=== PATIENT | female | born 1955 ===

== ENCOUNTER 2018-07-21 12:36 | Emergency (ER) | payer MEDICAID, OTHER ==
[2018-07-21] MEDS ORDERED: Albuterol-Ipratrop 3 mg / 0.5 (3 ml) UD ONE ×2 (12:43→13:32)
[2018-07-21 12:46] VITALS: TEMP 97.6
[2018-07-21] MEDS ORDERED: Albuterol-Ipratrop 3 mg / 0.5 (3 ml) UD INH STA (12:48)
[2018-07-21] MEDS ORDERED: Dexamethasone 4 mg/1 ml IVP STA (13:14)
[2018-07-21] MEDS ORDERED: Albuterol 0.083% Inhal Sol (2.5 mg/3 mL) UD ONE (13:14)
[2018-07-21] MEDS: Albuterol-Ipratrop 3 mg / 0.5 (3 ml) UD IH SCH (13:33)
[2018-07-21 13:46] LABS: BASO # 0.1 K/uL (0.0-0.2); BASO % 1.1 % (0.0-2.0); EOS # 0.1 K/uL (0.0-0.7); EOS % 1.5 % (0.0-4.0); HEMOGLOBIN 12.6 g/dL (11.0-16.0); LYMPH % 62.5 % (20.0-40.0); MEAN CELL VOLUME 89.2 fL (81.0-99.0); MEAN CORPUSCULAR HGB CONC 32.5 g/dL (33.0-37.0); MONO # 0.5 K/uL (0.0-0.8); MONO % 5.2 % (0.0-10.0); NEUT # 2.8 K/uL (1.8-7.0); NEUT % 29.7 % (50.0-75.0); NRBC % 0.2 % (0.0-2.0); RBC 4.33 Mil/uL (3.80-5.20); RED CELL DISTRIBUTION WIDTH 13.1 % (11.5-14.5); WHITE BLOOD COUNT 9.6 K/uL (4.8-10.8)
[2018-07-21 13:51] LABS: BLOOD UREA NITROGEN 12 mg/dL (7-17); GFR NON-AFRICAN AMERICAN > 60
[2018-07-21 13:52] LABS: ALB/GLOB RATIO 1.6 (1.0-2.1); ALBUMIN 4.3 g/dL (3.5-5.0); ALT/SGPT 23 U/L (9-52); AST/SGOT 22 U/L (14-36); CALCIUM 9.4 mg/dl (8.6-10.4)
[2018-07-21 13:55] LABS: CK-MB 0.65 ng/mL (0.0-3.38)
--- NOTE | 2018-07-21 13:57 | C.PDOC ---
History Of Present Illness 63 y/o female, with history of asthma, presents to the ED complaining of chest pain and SOB. Patient states she was recently diagnosed with the flu. She reports she is still wheezing despite using her inhaler. Patient denies any fev er, chills, cough, palpitations, vomiting, or other complaints. Time Seen by Provider: 07/21/18 13:02 Chief Complaint (Nursing): Shortness Of Breath History Per: Patient History/Exam Limitations: no limitations Onset/Duration Of Symptoms: Days Current Symptoms Are (Timing): Still Present Severity: Mild Past Medical History Reviewed: Historical Data, Nursing Documentation, Vital Signs Vital Signs: Last Vital Signs Temp 97.6 F 07/21/18 12:40 Pulse 95 H 07/21/18 12:40 Resp 26 H 07/21/18 13:18 BP Pulse Ox 92 L 07/21/18 12:40 - Medical History PMH: Asthma, Back Problems, Gastritis, GERD Surgical History: Appendectomy (19 ys old) Family History: States: No Known Family Hx - Social History Hx Tobacco Use: No Hx Alcohol Use: No Hx Substance Use: No - Immunization History Hx Tetanus Toxoid Vaccination: No Hx Influenza Vaccination: No Hx Pneumococcal Vaccination: No Review Of Systems Except As Marked, All Systems Reviewed And Found Negative. Constitutional: Negative for: Fever, Chills, Sweats Cardiovascular: Positive for: Chest Pain. Negative for: Palpitations Respiratory: Positive for: Shortness of Breath, Wheezing. Negative for: Cough Gastrointestinal: Negative for: Vomiting Physical Exam - Physical Exam Appears: Non-toxic, No Acute Distress, Other (Anxious) Skin: Warm, Dry Head: Atraumatic, Normacephalic Eye(s): bilateral: Normal Inspection Oral Mucosa: Moist Neck: Supple Cardiovascular: Rhythm Regular, No Murmur Respiratory: No Rales, No Rhonchi, Wheezing (expiratory wheezing in both lung de dios) Extremity: Normal ROM Extremity: Bilateral: Atraumatic, Normal Color And Temperature, Normal ROM Neurological/Psych: Oriented x3, Normal Speech, Normal Cognition ED Course And Treatment - Laboratory Results Result Diagrams: 07/21/18 13:25 07/21/18 13:25 Lab Results: Total Bilirubin 1.0 mg/dL (0.2-1.3) 07/21/18 13:25 AST 22 U/L (14-36) 07/21/18 13:25 ALT 23 U/L (9-52) 07/21/18 13:25 Alkaline Phosphatase 84 U/L (38-126) 07/21/18 13:25 Total Protein 7.0 g/dL (6.3-8.3) 07/21/18 13:25 Albumin 4.3 g/dL (3.5-5.0) 07/21/18 13:25 Globulin 2.7 gm/dL (2.2-3.9) 07/21/18 13:25 Albumin/Globulin Ratio 1.6 (1.0-2.1) 07/21/18 13:25 Lab Interpretation: Normal ECG: Interpreted By Me ECG Rhythm: Sinus Rhythm, Nonspecific Changes ECG Interpretation: No Acute Changes Rate From EC O2 Sat by Pulse Oximetry: 92 (RA) Pulse Ox Interpretation: Abnormal - Radiology CXR: Interpreted by Me CXR Interpretation: Yes: No Acute Disease Progress Note: treated with duoneb x 3 andecadron. On re-evaluation feeling better, lungs clear in no distress Reassessment Condition: Improved Medical Decision Making Medical Decision Making: Plan: --Labs --Chest XR --UA --Duoneb --Decadron 10 mg IVP Disposition Counseled Patient/Family Regarding: Studies Performed, Diagnosis, Need For Followup, Rx Given - Disposition Referrals: [facility] [Outside] [email or web address] [Outside] Disposition: HOME/ ROUTINE Disposition Time: 16:00 Condition: IMPROVED Additional Instructions: Follow up with your PMD for further evaluation Return to ED if any increase symptoms Prescriptions: predniSONE [predniSONE Tab] 40 mg PO DAILY #8 tab Instructions: Asthma in Adults Forms: [facility] (Barbadian) - POA Present On Arrival: None - Clinical Impression Clinical Impression: Asthma - 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 - Scribe Statement The provider has reviewed the documentation as recorded by the Scribe Faith Mcelroy All medical record entries made by the Scribe were at my direction and personally dictated by me. I have reviewed the chart and agree that the record accurately reflects my personal performance of the history, physical exam, medical decision making, and the department course for this patient. I have also personally directed, reviewed, and agree with the discharge instructions and disposition.
--- NOTE | 2018-07-21 14:41 | RAD ---
HISTORY: SOB COMPARISON: Chest x-ray performed 11/16/13 TECHNIQUE: Chest PA and lateral FINDINGS: LUNGS: No focal consolidation. Please note that chest x-ray has limited sensitivity for the detection of pulmonary masses. PLEURA: No significant pleural effusion identified. No definite pneumothorax . CARDIOVASCULAR: Heart size appears within normal limits. Atherosclerotic calcifications of the aortic knob. OSSEOUS STRUCTURES: Degenerative changes. VISUALIZED UPPER ABDOMEN: Unremarkable. OTHER FINDINGS: None. IMPRESSION: No focal consolidation.
[2018-07-21 15:22] VITALS: BP 115/51; PULSE 72; RESP 16
[2018-07-21 15:27] VITALS: O2SAT 92
== END 2018-07-21 15:58 | disposition home or self-care (01) ==
LOC: C.ER 12:36
DX: J45.909 Unspecified asthma, uncomplicated (principal)
CPT/HCPCS: 36415; 71046; 80053; 82553; 84484; 85025; 96374; 99284; J1100

== ENCOUNTER 2018-09-12 09:28 | Emergency (ER) | payer MEDICARE, OTHER ==
[2018-09-12 09:35] VITALS: RESP 18; O2SAT 98
[2018-09-12] MEDS ORDERED: Albuterol-Ipratrop 3 mg / 0.5 (3 ml) UD INH STA (10:55)
--- NOTE | 2018-09-12 11:47 | C.PDOC ---
History Of Present Illness 63 y.o. female with hx of arthritis presents with worsening bilateral knee pain and calf for 2 weeks. Pt reports the pain is worse on the left knee and calf. Admits to taking meloxicam without pain relief so she stopped one week ago. . She notes the pt is worse with swelling bilaterally to lower extremities. Denies CP, SOB, trauma, prolonged immobilization, numbness, tingling, or any other associated symptoms. Time Seen by Provider: 09/12/18 10:41 Chief Complaint (Nursing): Lower Extremity Problem/Injury History Per: Patient History/Exam Limitations: no limitations Onset/Duration Of Symptoms: Days Current Symptoms Are (Timing): Still Present Recent travel outside of the [place]: No Past Medical History Reviewed: Historical Data, Nursing Documentation, Vital Signs Vital Signs: Last Vital Signs Temp 98.5 F 09/12/18 09:32 Pulse 84 09/12/18 09:32 Resp 18 09/12/18 09:32 BP 117/76 09/12/18 09:32 Pulse Ox 98 09/12/18 09:32 Primary Care Provider: Nirav Jara - Medical History PMH: Asthma, Back Problems, Gastritis, GERD, Hypercholesterolemia Surgical History: Appendectomy (19 ys old) Family History: States: Unknown Family Hx - Social History Hx Tobacco Use: No Hx Alcohol Use: No Hx Substance Use: No - Immunization History Hx Tetanus Toxoid Vaccination: No Hx Influenza Vaccination: No Hx Pneumococcal Vaccination: No Review Of Systems Cardiovascular: Negative for: Chest Pain Respiratory: Negative for: Shortness of Breath Musculoskeletal: Positive for: Leg Pain (bilateral pain and swelling to lower extremities, worse to the right knee and calf.). Negative for: Other ((-) trauma. (-) prolonged immobilization.) Neurological: Negative for: Weakness, Numbness, Incoordination Physical Exam - Physical Exam Appears: Non-toxic, No Acute Distress Skin: Warm, Dry Head: Atraumatic, Normacephalic Eye(s): bilateral: Normal Inspection Oral Mucosa: Moist Neck: Normal ROM, Supple Cardiovascular: Rhythm Regular Respiratory: No Decreased Breath Sounds, No Accessory Muscle Use, No Wheezing Extremity: Normal ROM (painful ROM. ), Tenderness (bilateral diffuse tenderness to the lower extremities, more specifically tenderness to the posterior calves), No Deformity, No Swelling Pulses: Left Dorsalis Pedis: Normal, Right Dorsalis Pedis: Normal Neurological/Psych: Oriented x3, Normal Speech, Normal Cognition, Normal Motor, Normal Sensation, Normal Reflexes ED Course And Treatment O2 Sat by Pulse Oximetry: 98 (RA) Pulse Ox Interpretation: Normal Medical Decision Making Medical Decision Making: Initial plan: -Xray bilateral knees HCG Urine Tylenol pt with bilateral calf and knee pain and swelling x 2 weeks worsening. concern for dvt given pt's pain. pt has neg bilateral doppler. mildly elevated cpk. feeling better after toradol. d/c home with pmd f/u Disposition Counseled Patient/Family Regarding: Studies Performed, Diagnosis, Need For Followup - Disposition Referrals: Nirav Jara MD [Staff Provider] - Disposition: HOME/ ROUTINE Disposition Time: 13:49 Condition: IMPROVED Additional Instructions: Follow up with Dr Jara in 1-2 days., Drink more fluids; 6-8 cups of water per day. Take Tylnol and ibuprofen as prescribed. . Elevate legs when possible. 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 - Scribe Statement The provider has reviewed the documentation as recorded by the Scribe (Emelia Escalante) All medical record entries made by the Scribe were at my direction and personally dictated by me. I have reviewed the chart and agree that the record accurately reflects my personal performance of the history, physical exam, medical decision making, and the department course for this patient. I have also personally directed, reviewed, and agree with the discharge instructions and disposition.
[2018-09-12 14:02] VITALS: BP 113/71; PULSE 72; TEMP 98.2
--- NOTE | 2018-09-12 17:41 | RAD ---
Date of service: 09/12/2018 PROCEDURE: Bilateral Knee Radiographs. HISTORY: cough sob COMPARISON: None. TECHNIQUE: 4 views obtained. FINDINGS: BONES: Right Knee: Normal. No fracture. Left Knee: Normal. No fracture. JOINTS: Right Knee: Moderate to severe osteoarthritis. Left knee: Moderate osteoarthritis. SOFT TISSUES: Right Knee: Normal. Left Knee: Normal. JOINT EFFUSION: Right Knee: None. Left Knee: None. OTHER FINDINGS: None. IMPRESSION: Moderate to severe osteoarthritis. No evidence of acute fracture.
--- NOTE | 2018-09-14 09:48 | VASCLAB ---
Date of service: 09/12/2018 PROCEDURE: Lower Extremity Venous Duplex Exam. HISTORY: bilateral calf pain Localized edema, pain PRIORS: None. TECHNIQUE: Bilateral common femoral, femoral, popliteal and posterior tibial, peroneal and great saphenous veins were evaluated. Flow was assessed with color Doppler, compressibility, assessment of phasic flow and augmentation response. Report prepared by rBandon Mckeon, T FINDINGS: RIGHT: 1. Common Femoral Vein: 1.1. Compressibility - Fully compressible: Thrombus - None : Flow - Phasic: Augmentation -Normal: Reflux - . 2. Femoral Vein: 2.1. Compressibility - Fully compressible: Thrombus - None : Flow - Phasic: Augmentation -Normal: Reflux - . 3. Popliteal Vein 3.1. Compressibility - Fully compressible: Thrombus - None : Flow - Phasic: Augmentation -Normal: Reflux - . 4. Posterior Tibial Vein: 4.1. Compressibility - Fully compressible: Thrombus - None: Flow - Phasic: Augmentation -Normal: Reflux - . 5. Peroneal Vein: 5.1. Compressibility - Fully compressible: Thrombus - None: Flow - Phasic: Augmentation -Normal: Reflux - . 6. Great Saphenous Vein: 6.1. Compressibility - Fully compressible: Thrombus - None: Flow - Phasic: Augmentation - Normal: Reflux - . LEFT: 1. Common Femoral Vein: 1.1. Compressibility - Fully compressible: Thrombus - None: Flow - Phasic: Augmentation -Normal: Reflux - . 2. Femoral Vein: 2.1. Compressibility - Fully compressible: Thrombus - None: Flow - Phasic: Augmentation -Normal: Reflux - . 3. Popliteal Vein: 3.1. Compressibility - Fully compressible: Thrombus - None : Flow - Phasic: Augmentation -Normal: Reflux - . 4. Posterior Tibial Vein: 4.1. Compressibility - Fully compressible: Thrombus - None: Flow - Phasic: Augmentation -Normal: Reflux - . 5. Peroneal Vein: 5.1. Compressibility - Fully compressible: Thrombus - None: Flow - Phasic: Augmentation -Normal: Reflux - . 6. Great Saphenous Vein: 6.1. Compressibility - Fully compressible: Thrombus - None: Flow - Phasic: Augmentation - Normal: Reflux - . OTHER FINDINGS: Right: None significant. Left: None significant. IMPRESSION: Right: No evidence of deep or superficial vein thrombosis of the right lower extremity. Left: No evidence of deep or superficial vein thrombosis of the left lower extremity.
== END 2018-09-12 14:06 | disposition home or self-care (01) ==
LOC: C.ER 09:28
DX: M79.662 Pain in left lower leg (principal); M79.661 Pain in right lower leg; E78.00 Pure hypercholesterolemia, unspecified
CPT/HCPCS: 73562; 82550; 93970; 96372; 99283; J1885